=== PATIENT | male | born 1960 | race African-American/Black ===

== ENCOUNTER 2022-09-06 00:46 | Emergency (ER) | payer MEDICAID, OTHER ==
[~2022-09-06] VITALS: Ht 193 cm; Wt 100.0 kg
[2022-09-06] MEDS ORDERED: LORAZEPAM 2MG/ML CPJ IM ONE ×2 (01:30→22:30)
[2022-09-06 01:57] LABS: HEMATOCRIT. 49.5 % (42.0-52.0); HEMOGLOBIN. 16.7 g/dL (14.0-18.0); MEAN CORPUSCULAR HEMOGLOBIN 30.2 pg (28.0-32.0); MEAN CORPUSCULAR VOLUME 89.5 fL (80.0-94.0); PLATELET 299 x1000/uL (130-400); RED BLOOD CELL COUNT 5.52 mill/uL (4.7-6.1); RED CELL DISTRIBUTION WIDTH 14.5 % (11.6-14.6)
[2022-09-06 02:07] LABS: CHLORIDE 105 mEq/L (98-107)
[2022-09-06 02:14] LABS: ETHANOL BLOOD 15 mg/dL
[2022-09-06] MEDS ORDERED: LORAZEPAM 2MG/ML CPJ IV ONE (02:15)
[2022-09-06 02:42] LABS: PLATELET ESTIMATE NORMAL
[2022-09-06] MEDS ORDERED: SODIUM CHLORIDE 0.9% 1,000 ML IV NR (02:45)
[2022-09-06] MEDS ORDERED: LIDOCAINE HCL/EPINEPHRINE 1%-EPI 1:100,000 20 ML VIAL INFIL ONE (02:45)
[2022-09-06] MEDS: OLANZAPINE 5MG TABLET ODT PO SCH (11:44)
[2022-09-06 12:50] LABS: CLARITY URINE CLOUDY (CLEAR); COLOR URINE DARK YELLOW (YELLOW); KETONES URINE 1+ (NEGATIVE); LEUKOCYTE ESTERASE URINE TRACE (NEGATIVE); NITRITE URINE NEGATIVE (NEGATIVE); OCCULT BLOOD URINE NEGATIVE (NEGATIVE); PH URINE 5.5 (4.5-8.0); PROTEIN URINE 2+ (NEGATIVE); SPECIFIC GRAVITY URINE 1.021 (1.005-1.030)
[2022-09-06 13:45] LABS: *AMPHETAMINES SCREEN URINE PRESUMTIVE POSITIVE (NEGATIVE); *BARBITURATES SCREEN URINE NEGATIVE (NEGATIVE); *BENZODIAZEPINES SCREEN URINE NEGATIVE (NEGATIVE); *COCAINE SCREEN URINE NEGATIVE (NEGATIVE); CANNABINOID URINE SCREEN PRESUMTIVE POSITIVE (NEGATIVE); METHADONE URINE SCREEN NEGATIVE (NEGATIVE); OPIATES URINE SCREEN NEGATIVE (NEGATIVE); PHENCYCLIDINE URINE SCREEN NEGATIVE (NEGATIVE)
[2022-09-06] MEDS ORDERED: DIPHENHYDRAMINE 50MG/ML VIAL IM ONE (21:30)
[2022-09-06] MEDS ORDERED: HALOPERIDOL LACTATE 5MG/ML VIAL IM ONE (23:30)
[2022-09-07] MEDS: OLANZAPINE 5MG TABLET ODT PO SCH (08:53)
[2022-09-07 10:10] VITALS: BP 124/76
== END 2022-09-07 10:51 | disposition home or self-care (01) ==
LOC: ER 00:46
DX: F15.10 Other stimulant abuse, uncomplicated (principal); S61.411A Laceration without foreign body of right hand, initial encounter; Z20.822 Contact with and (suspected) exposure to COVID-19; N17.9 Acute kidney failure, unspecified; Z88.0 Allergy status to penicillin; X58.XXXA Exposure to other specified factors, initial encounter; Y93.89 Activity, other specified; Y92.89 Other specified places as the place of occurrence of the external cause; Y99.8 Other external cause status
CPT/HCPCS: 12002; 36415; 80053; 80305; 80320; 81003; 85025; 87426; 96361; 96372; 96374; 99285; C9803; J1200; J1630; J2060; J3490; Z7610; G0480